=== PATIENT | male | born 1955 ===

== ENCOUNTER 2017-04-07 11:04 | Emergency (ER) | payer SELFPAY ==
--- NOTE | 2017-04-07 11:45 | Emergency Department Record ---
History of Present Illness - General Chief Complaint: Numbness Stated Complaint: RIGHT SIDE NUMBNESS/OFF BALANCE Time Seen by Provider: 04/07/17 11:36 Source: Patient Mode of Arrival: Wheelchair Limitations: No limitations - History of Present Illness Initial Comments: The patient is here due to feeling numb on his R side for 2-3 days. The numbness is mostly over the R arm and face and minimally the trunk and R leg. He denies any COATS, visual changes, CP, SOB, or MINDY. The patient also states he has had some problems with his balance for about 10 days also. The patient denies any recent illnesses or injuries. Onset/Timin -: Days(s) Location: Right arm, Other History of same: No Place: Home Severity: Mild Quality: Numb Improves With: None Worsens With: None On Anticoagulants: No Associated Symptoms: Denies other symptoms Treatments Prior to Arrival: None - Related Data Allergies/Adverse Reactions: Allergies Allergy/AdvReac Type Severity Reaction Status Date / Time No Known Drug Allergies Allergy Unverified 01/21/17 07:20 Travel Screening - Travel/Exposure Within Last 30 Days Have you traveled within the last 30 days?: No Review of Systems Constitutional: Denies: Chills, Fever Eyes: Denies: Eye discharge ENT: Denies: Congestion Respiratory: Denies: Cough, Dyspnea Past Medical History - SOCIAL HISTORY Smoking Status: Never smoker Alcohol Use: None Drug Use: None - RESPIRATORY Hx Respiratory Disorders: No - CARDIOVASCULAR Hx Cardio Disorders: Yes Hx Hypertension: Yes - NEURO Hx Neuro Disorders: No - GI Hx GI Disorders: No - Hx Genitourinary Disorders: No - ENDOCRINE Hx Endocrine Disorders: Yes Hx Diabetes: Yes - MUSCULOSKELETAL Hx Musculoskeletal Disorders: No - PSYCH Hx Psych Problems: No - HEMATOLOGY/ONCOLOGY Hx Hematology/Oncology Disorders: No Family Medical History Any Significant Family History?: No Physical Exam - General General Appearance: Alert, Oriented x3, Cooperative, No acute distress - Head Head exam: Atraumatic, Normocephalic, Normal inspection - Eye Eye exam: Normal appearance, PERRL - ENT Throat exam: Normal inspection. negative: Tonsillar erythema, Tonsillar exudate - Neck Neck exam: Normal inspection, Full ROM. negative: Tenderness - Respiratory Respiratory exam: Normal lung sounds bilaterally. negative: Respiratory distress - Cardiovascular Cardiovascular Exam: Regular rate, Normal rhythm, Normal heart sounds - GI/Abdominal GI/Abdominal exam: Soft, Normal bowel sounds. negative: Tenderness - Extremities Extremities exam: Normal inspection, Full ROM, Normal capillary refill. negative: Tenderness - Neurological Neurological exam: Alert, Normal gait, Oriented X3. negative: Abnormal gait, Altered, Motor sensory deficit Course Vital Signs 04/07/17 11:17 Temperature 97.9 F Pulse Rate [ 79 Pulse Ox Probe] Respiratory 18 Rate Blood Pressure 166/91 [Left Arm] Pulse Ox 99 - Reevaluation(s) Reevaluation #1: The patient is doing very well at this time. He is up walking but still feels the numbness on the R side. I did explain to him the tests are all WNL's so far but I am concerned the patient could have had a mild CVA. Due to that fact I do recommend hospital admission and the patient agrees. I then did discuss the case with Dr. Sunshine and he accepts the admission. 04/07/17 14:11 Reevaluation #2: The patient is doing very well at this time. He denies any new symptoms or problems and is ambulating and conversing normally. The patient was seen in the ER by Dr. Sunshine and no longer wants to stay in the hospital. He would like to leave and have his workup done as an outpatient. I did explain to him that the risks of leaving are that he could go home and have a big stroke, become disabled and even . The patient understands and accepts the risks. He will F/ U in the [facility] later this week. He also was instructed to return to the ER for any worsening symptoms. 04/07/17 15:07 Medical Decision Making - Data Complexity MDM Data: Labs Ordered and/or Reviewed, X-Ray Ordered and/or Reviewed, EKG Ordered and/or Reviewed - Lab Data Result diagrams: 04/07/17 12:20 04/07/17 12:20 - EKG Data -: EKG Interpreted by Me EKG: No Acute Changes, Normal EKG - Radiology Data Radiology results: Report reviewed (CXR and Head CT: Neg.) Disposition Disposition: Discharge Clinical Impression: TIA (transient ischemic attack) Qualifiers: Transient cerebral ischemia type: unspecified Qualified Code(s): G45.9 - Transient cerebral ischemic attack, unspecified Disposition: Against Medical Advice Condition: (2) Stable Instructions: Transient Ischemic Attack (ED) Additional Instructions: Please take a full dose aspirin daily and double your Lisinopril dose daily until your see your PCP later this week. Return to the ER for any worsening numbness, or any weakness, trouble walking or talking. Forms: Patient Portal Access Time of Disposition: 15:11 Quality - Quality Measures Quality Measures: N/A - Blood Pressure Screening View Details: Yes Does Patient Have Any of the Following: No, Active Dx of HTN Blood Pressure Classification: Hypertensive Reading Systolic Measurement: 158 Diastolic Measurement: 116 Screening for High Blood Pressure: Patient Exclusion, Hx of HTN [[id number]]
[2017-04-07] MEDS ORDERED: ASPIRIN 325 MG TABLET PO ONE (12:15)
[2017-04-07 12:25] LABS: BASO % 0.2 % (0-6); EOS % 2.3 % (0-6); GRAN % 57.3 % (47-80); HEMATOCRIT 45.3 % (42.0-52.0); HEMOGLOBIN 14.9 gm/dl (14.0-18.0); LYMPH % 30.3 % (16-45); MEAN CORPUSCULAR HGB CONC 32.9 g/dl (32-36); MEAN PLATELET VOLUME 9.8 fl (7.4-10.4); MONO % 9.9 % (0-9); PLATELET COUNT 164 K/uL (130-400); RED BLOOD COUNT 5.33 M/uL (4.40-5.70); RED CELL DISTRIBUTION WIDTH 14.3 % (11.5-14.5); WHITE BLOOD COUNT W/O DIFF 6.2 K/uL (4.2-12.2)
[2017-04-07 12:44] LABS: BLOOD UREA NITROGEN 20 mg/dL (6-20)
[2017-04-07 12:45] LABS: CREATININE 1.2 mg/dL (0.7-1.2); EST GLOMERULAR FILTRATION RATE > 60 mL/min
[2017-04-07 12:47] LABS: GLUCOSE,RANDOM 208 mg/dL (74-109)
[2017-04-07 12:50] LABS: CREATINE PHOSPHOKINASE 125 U/L (39-308)
[2017-04-07 12:52] LABS: CKMB 4.1 ng/mL (<6.73)
--- NOTE | 2017-04-07 13:10 | RADIOLOGY REPORT ---
EXAM: CHEST, TWO VIEWS HISTORY: DIFFICULTY IN BREATHING. TECHNIQUE: Frontal and lateral views of the chest were performed. FINDINGS: The heart size is normal. The lung prather are clear. No pneumothorax. The osseous structures are normal. IMPRESSION: NEGATIVE CHEST EXAMINATION. JOB NUMBER: [id number] MTDD
--- NOTE | 2017-04-07 14:17 | CT SCAN REPORT ---
EXAM: CT OF THE BRAIN WITHOUT CONTRAST HISTORY: HEADACHE. TECHNIQUE: Sequential axial images were obtained from the foramen magnum to the vertex without contrast administration. FINDINGS: The brain volume is normal. No large territorial infarct, hemorrhage , mass effect, or midline shift. The orbits, paranasal sinuses, and mastoid air cells are normal. IMPRESSION: NO ACUTE INTRACRANIAL ABNORMALITY IS APPRECIATED. JOB NUMBER: [id number] MTDD
== END 2017-04-07 15:24 | disposition left against medical advice (07) ==
LOC: ER 11:04
DX: G45.9 Transient cerebral ischemic attack, unspecified (principal); R51 Headache; R06.00 Dyspnea, unspecified; I10 Essential (primary) hypertension; E11.9 Type 2 diabetes mellitus without complications
CPT/HCPCS: 70450; 71020; 80048; 82550; 82553; 84484; 85025; 93005; 93010; 99284